=== PATIENT | male | born 1950 | race Caucasian/White ===

== ENCOUNTER → 2024-12-04 15:16 | Outpatient (REF) | payer MEDICARE, OTHER, SELFPAY | LOC: RAD 15:16 | PROVIDERS: ATTENDING PHYSICIAN Orthopaedic Surgery Sports Medicine; FAMILY PHYSICIAN Internal Medicine | DX: S86.812A Strain of other muscle(s) and tendon(s) at lower leg level, left leg, initial encounter (principal); Z96.652 Presence of left artificial knee joint | CPT/HCPCS: 73700 ==